=== PATIENT | male | born 2000 ===

== ENCOUNTER 2024-11-24 12:14 | Emergency (ER) | payer MEDICAID, SELFPAY ==
--- NOTE | ~2024-11-24 | XR_ITS ---
EXAMINATION: XR LUMBOSACRAL SPINE CLINICAL INFORMATION: midline lumbar spine pain, no injury COMPARISON: None available. TECHNIQUE: Three views of the lumbosacral spine. FINDINGS: The vertebral bodies and posterior elements are normal. The disc spaces are preserved and the vertebral alignment is normal. The paraspinal soft tissues are normal. XR/XR lumbar spine 2-3V IMPRESSION: Normal lumbar spine. Electronically signed by: Henrique Younger MD 11/24/2024 12:46 PM EDT
--- NOTE | 2024-11-24 12:19 | ED.BACK ---
HPI - Back Pain/Injury General Chief Complaint: Back Pain/Injury Stated Complaint: Back Pain No Injury Time Seen by Provider: 11/24/24 13:33 Source: patient and RN notes reviewed Mode of arrival: ambulatory Limitations: no limitations History of Present Illness ED Provider: Liliana Nicole PA-C HPI Narrative: This is a 24-year-old male who presents emergency department with complaints of low back pain for the last week, worsening since yesterday. Patient denies any recent trauma or injury. Patient reports that yesterday while he was showering he felt his back locked up and he has had pain ever since. Pain worsens with movement. Pain is in his low back, does not radiate. No lower extremity weakness. He states pain worsens with movement of his legs. Denies any recent illness. Patient denies any numbness, tingling, or weakness. Denies any urinary or bowel retention or incontinence. No chest pain or shortness of breath. No urinary symptoms. Denies history of similar symptoms in the past. No other complaints or concerns at this time. MD elicited complaint: back pain Onset (ago): day(s) Timing: constant Severity: moderate Similar Symptoms Previously: No Quality: aching Location: lumbar spine Radiation: none Exacerbating factors: none Relieving factors: none Associated symptoms: denies other symptoms Related Data Previous Rx's ?Medication ?Instructions ?Recorded acetaminophen 500 mg tablet 1,000 mg (2 x 500 mg) PO Q8H PRN 11/24/24 (Tylenol Extra Strength) fever #30 tabs cyclobenzaprine 10 mg tablet 10 mg PO TID #14 tabs 11/24/24 lidocaine 5 % topical patch 1 patch topical DAILY #30 ea 11/24/24 prednisone 50 mg tablet 50 mg PO DAILY 5 days #5 tabs 11/24/24 Allergies Allergy/AdvReac Type Severity Reaction Status Date / Time No Known Allergies Allergy Verified 11/24/24 12:21 Review of Systems Review of Systems: Yes all other systems are reviewed and are negative Constitutional: Constitutional: Reports as per [facility] Social History Social History Smoked in Last 30 Days: Yes Use of substances other than those prescribed or required for medical reasons: No Advance Directives: No Advance Directives Information Provided: Yes Do you have a plan to hurt others: No Plan Physical Exam Vital Signs: Vital Signs: Last Vital Signs Temp 98.7 F 11/24/24 18:26 Pulse 75 11/24/24 18:26 Resp 16 11/24/24 18:26 BP 117/70 11/24/24 18:26 Pulse Ox 100 11/24/24 18:26 O2 Del Method Room Air 11/24/24 18:26 BMI result Body Mass Index 9.9 Const: General: cooperative, comfortable and no acute distress Orientation/consciousness: patient oriented x3 Limitations: no limitations HEENT: Head: Yes normal to inspection, Yes normocephalic and Yes atraumatic Ears: hearing grossly normal bilaterally General nose exam: Normal external nose present Face and sinus: Yes normal facial exam Mouth: Normal oral and palatal mucosa present, oropharynx normal and moist mucous membranes Throat: Yes posterior oropharynx normal Eyes: General: appearance normal, both eyes and all related structures Eyelids: Yes eyelids normal Conjunctivae: conjunctivae normal Sclerae: sclerae normal Pupils: Equal, round and reactive pupils present EOM: EOMs intact bilaterally Neck: Neck: Yes normal visual inspection, Yes full ROM and Yes no lymphadenopathy Lymphatic: no lymphadenopathy noted Chest: Chest palpation & inspection: normal inspection of the chest Resp: Effort & Inspection: normal respiratory effort and able to speak in complete sentences Auscultation: clear to auscultation bilaterally, no crackles, no rales, no rhonchi and no wheezes Cardio: Rate: regular rate Rhythm: regular rhythm Heart sounds: S1 normal heart sound present and S2 normal heart sound present GI: Inspection: Yes normal to inspection : General: Yes no CVA tenderness Back/Spine/Pelvis: Other: Patient was tenderness palpation along the left lumbar paraspinous muscles, no midline spine tenderness. No overlying skin changes or rashes. Back: no CVA tenderness Skin: General skin exam: no rashes or lesions noted Trauma: no lacerations or abrasions Wounds: no wounds Neuro: General: patient oriented x3 and moves all extremities Cranial nerves: Yes Equal, round and reactive pupils present Extrem: General: Yes normal to inspection Right upper extremity: normal to inspection Left upper extremity: normal to inspection Right lower extremity: normal to inspection Left lower extremity: normal to inspection Course Course Course Narrative: This is a Rapid Medical Examination (RME) performed by Mary Roque PA-C in triage. Full HPI, ROS, assessment and treatment plan per primary provider in the Main ED. Hx: 24 yo male here for eval of pulling sensation to mid lower back x1 week, worsening yesterday. having difficulty moving. no falls/injury/ trauma. no hx IVDU. no hx spinal surgery. PE/vitals: in wheelchair. SILT throughout. ttp of midline lumbar spine and paraspinal musculature. Plan: xrs Reevaluation(s) Reevaluation #1: X-rays unremarkable, he is ambulatory emergency department. Pain has improved after receiving Toradol, Tylenol, lidocaine patch and Valium. Will treat symptoms with Lidoderm patches, ibuprofen, Tylenol, prednisone, muscle relaxants. Given strict return precautions. He is afebrile, nontoxic-appearing, no history of IVDA, and is ambulatory therefore I think it is appropriate for him to be discharged with close follow-up with PCP. He understands and agrees with plan. Patient stable for discharge. Medications Administered Discontinued Medications Generic Name Dose Route Start Last Admin Trade Name Latasha PRN Reason Stop Dose Admin Acetaminophen 975 mg 11/24/24 13:40 11/24/24 13:47 Acetaminophen 325 Mg Tablet PO 11/24/24 13:41 975 mg ONCE ONE Administration Diazepam 5 mg 11/24/24 14:44 11/24/24 15:02 Diazepam 5 Mg Tablet PO 11/24/24 14:45 5 mg ONCE ONE Administration Ketorolac Tromethamine 15 mg 11/24/24 13:40 11/24/24 13:47 Ketorolac Tromethamine 15 Mg/Ml Vial IM 11/24/24 13:41 15 mg ONCE ONE Administration Lidocaine 1 patch 11/24/24 13:40 11/24/24 13:47 Lidocaine 4 % Patch Adh..Patch TRANSDERMA 11/24/24 13:41 1 patch ONCE ONE Administration Protocol Medical Decision Making Medical Decision Making MDM Narrative: This is a 24-year-old male who presents emergency department with complaints of low back pain which started 1 week ago. On arrival, vital signs within normal limits. Lumbar spine x-ray revealing no acute findings. Symptoms consistent with muscle spasm, will medicate with Toradol, Tylenol, and lidocaine patch. Will monitor for symptomatic improvement. Patient with limited mobility secondary to spasm like pain in his left low back. We will continue to closely monitor. This patient presents with back pain most consistent with muscle spasm. Differential diagnoses includes lumbago versus musculoskeletal spasm / strain versus sciatica. No back pain red flags on history or physical. Presentation not consistent with malignancy (lack of history of malignancy, lack of B symptoms), fracture (no trauma, no bony tenderness to palpation), cauda equina syndrome (no bowel or urinary incontinence/retention, no saddle anesthesia, no distal weakness), renal colic, pyelonephritis (afebrile, no CVAT, no urinary symptoms). He reports no history of IVDA. X-ray was obtained prior to my assessment, revealing no acute findings. Again will medicate and reassess. Differential Diagnosis Differential Diagnoses: The differential diagnosis associated with the presentation includes See above Radiology Impression Discussion of test interpretation with radiology: I have reviewed the radiologist's reading. Radiologist Impression: EXAMINATION: XR LUMBOSACRAL SPINE CLINICAL INFORMATION: midline lumbar spine pain, no injury COMPARISON: None available. TECHNIQUE: Three views of the lumbosacral spine. FINDINGS: The vertebral bodies and posterior elements are normal. The disc spaces are preserved and the vertebral alignment is normal. The paraspinal soft tissues are normal. XR/XR lumbar spine 2-3V IMPRESSION: Normal lumbar spine. Electronically signed by: Henrique Younger MD 11/24/2024 12:46 PM EDT RP Discharge Plan Discharge Clinical Impression: Lumbar paraspinal muscle spasm Patient Disposition: Home, Self-Care Instructions: Muscle Spasm (ED) Additional Instructions: You were seen in the emergency department due to back pain. Please take prescribed medication as directed. Prednisone as an anti-inflammatory, take as prescribed. Take Tylenol as prescribed. Take cyclobenzaprine as needed for muscle relaxants. Please be advised that this can cause drowsiness, do not drink alcohol or drive while taking this medication. Lidocaine patches can help with your symptoms. Drink plenty of fluids get plenty of rest. If any new or worsening symptoms occur including but not limited to severe chest pain, shortness of breath, please seek emergent care. Prescriptions: New prednisone 50 mg tablet 50 mg PO DAILY 5 Days Qty: 5 0RF cyclobenzaprine 10 mg tablet 10 mg PO TID Qty: 14 0RF lidocaine 5 % adhesive patch,medicated 1 patch topical DAILY Qty: 30 0RF Rx Instructions: leave on most painful area for up to 12 hrs acetaminophen [Tylenol Extra Strength] 500 mg tablet 1,000 mg PO Q8H PRN (Reason: fever) Qty: 30 0RF Stand Alone Forms: Work/School Release Interventions: ED Discharge Assessment Last Done: 11/24/24 18:26 Discharge Date/Time: 11/24/24 18:27 Print Language: Unable To Collect
[2024-11-24 12:20] VITALS: BP 126/74; PULSE 88; RESP 18; TEMP 36.6; O2SAT 99
[2024-11-24] MEDS: Lidocaine 4 % Patch ADH..PATCH 1 PATCH TRANSDERMA (13:47)
[2024-11-24] MEDS: Acetaminophen 325 MG TABLET 975 MG PO (13:47)
[2024-11-24] MEDS: Ketorolac Tromethamine 15 MG/ML VIAL IM (13:47)
[2024-11-24 15:02] VITALS: BP 117/70; PULSE 75; RESP 16; O2SAT 100
[2024-11-24] MEDS: diazePAM 5 MG TABLET PO (15:02)
--- NOTE | 2024-11-24 17:04 | PC.NURSE ---
attempted to sit patient up to stand, patient unable to tolerate even sitting up d/t pain. Provider garret made aware.
[2024-11-24 18:26] VITALS: BP 117/70; PULSE 75; RESP 16; TEMP 37.1; O2SAT 100
== END 2024-11-24 18:27 | disposition home or self-care (01) ==
PROVIDERS: Emergency Provider Emergency Medicine
DX: M54.50 Low back pain, unspecified (principal); M62.830 Muscle spasm of back
CPT/HCPCS: 72100; 96372; 99284; J1885

== ENCOUNTER → 2024-11-24 12:24 | Outpatient (BNV) | payer SELFPAY | PROVIDERS: Visit Provider Radiology Diagnostic Radiology | DX: M54.50 Low back pain, unspecified (principal) | CPT/HCPCS: 72100 ==